=== PATIENT | female | born 1945 | race Caucasian/White ===

== ENCOUNTER 2017-01-26 15:46 | Emergency (ER) | payer OTHER, MEDICARE ==
[2017-01-26] MEDS ORDERED: LIDOCAINE PATCH 5% TOP STA (17:26)
[2017-01-26] MEDS ORDERED: ACETAMINOPHEN 325 MG TABLET PO STA (17:26)
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
[2017-01-26 18:13] VITALS: BP 158/76
== END 2017-01-26 18:13 | disposition home or self-care (01) ==
LOC: ED 15:46
DX: M54.5 Low back pain (principal); I10 Essential (primary) hypertension; J45.909 Unspecified asthma, uncomplicated; E11.9 Type 2 diabetes mellitus without complications; M19.90 Unspecified osteoarthritis, unspecified site; Z87.11 Personal history of peptic ulcer disease
CPT/HCPCS: 99283

== ENCOUNTER 2017-05-12 10:22 | Outpatient (CLI) | payer OTHER, MEDICARE ==
--- NOTE | 2017-05-14 14:05 | Mammography Report ---
EXAM: DIGITAL BILATERAL SCREENING MAMMOGRAM: 05/12/2017 CLINICAL INDICATION: A 71-year-old with history of benign biopsy, for screening. COMPARISON: 08/2015, 09/2007, 08/2007. TECHNIQUE: Routine CC and MLO projections were obtained of the breasts. REPORT: The breasts again demonstrated scattered fibroglandular densities bilaterally. Punctate, typically benign calcifications are present. Intramammary lymph nodes are stable. No suspicious masses, clustered microcalcifications, or regions of architectural distortion are identified. IMPRESSION: BENIGN FINDINGS. RECOMMENDATIONS: Routine annual screening unless otherwise clinically indicated. BIRADS 2 - Benign findings. STANDARD QUALIFYING STATEMENTS: 1. This examination was reviewed with the aid of Computer-Aided Detection (CAD). 2. A negative or benign imaging report should not delay biopsy if clinically suspicious findings are present. Consider surgical consultation if warranted. More than 5% of cancers are not identified by imaging. 3. Dense breasts may obscure an underlying neoplasm. SHASHI TD: 05/13/2017 16:44 RADHA
== END 2017-05-12 10:23 | disposition home or self-care (01) ==
LOC: DI 10:22
PROVIDERS: ATTEND Family Medicine
DX: Z12.31 Encounter for screening mammogram for malignant neoplasm of breast (principal)
CPT/HCPCS: 77067

== ENCOUNTER 2017-05-12 10:22 | Outpatient (CLI) | payer OTHER, MEDICARE ==
--- NOTE | 2017-05-16 13:29 | DEXA Report ---
EXAM: DEXA 05/12/2017. CLINICAL INDICATION: Postmenopausal. TECHNIQUE: Dual energy x-ray absorptiometry (DXA) was performed on a [employer] system. Regions measured are the AP spine, femoral neck, and, if needed, forearm. COMPARISON: None. In accordance with the International Society for Clinical Densitometry (ISCD) guidelines, data from previous exams may be reanalyzed using current recommendations and techniques. This is done to allow a more accurate basis for comparison with the current study. FINDINGS: The data for the lumbar spine is as follows: REGION BMD (g/cm/cm) T-SCORE Z-SCORE L1 1.161 0.3 0.8 L2 1.145 -0.5 0.1 L3 1.180 -0.2 0.4 L4 1.209 0.1 0.6 TOTAL 1.176 0.0 0.5 The data for the hip is as follows: REGION BMD (g/cm/cm) T-SCORE Z-SCORE Neck 0.857 -1.3 -0.2 TOTAL 0.964 -0.3 0.4 IMPRESSION WHO CLASSIFICATION BASED ON THE INTERNATIONAL REFERENCE STANDARD: OSTEOPENIA. FRACTURE RISK: INCREASED. RECOMMENDATION: Patients with diagnosis of osteoporosis or osteopenia should have regular bone mineral density assessment. For those eligible for Medicare, routine testing is allowed once every 2 years. Testing frequency can be increased for patients who have rapidly progressing disease or for those who are receiving medical therapy to restore bone mass. COMMENT: World Health Organization (WHO) definitions for osteoporosis and osteopenia: NORMAL BMD: T-score at 1.0 or higher, fracture risk is low. OSTEOPENIA BMD: T-score between 1.0 and -2.5, fracture risk is increased. OSTEOPOROSIS BMD: T-score at 2.5 or lower, fracture risk high. National Osteoporosis Foundation recommends: 1. Obtain adequate dietary calcium (at least 1200 mg per day) and vitamin D (400 -800 international units per day). 2. Participate, as appropriate, in regular weightbearing and muscle- strengthening exercise. 3. Avoid tobacco use and reduce alcohol and caffeine intake. 4. For more detailed information see the website at www.NOF.org TD: 05/12/2017 19:42 MTDClaritza
== END 2017-05-12 10:23 | disposition home or self-care (01) ==
LOC: DI 10:22
PROVIDERS: ATTEND Family Medicine
DX: M85.88 Other specified disorders of bone density and structure, other site (principal)
CPT/HCPCS: 77080

== ENCOUNTER 2017-05-19 12:17 | Day surgery (SDC) | payer OTHER, MEDICARE ==
[2017-05-19] MEDS ORDERED: LACTATED RINGERS 1,000 ML IV ONE ×2 (14:29)
[2017-05-19] MEDS ORDERED: MIDAZOLAM 2 MG/2 ML VIAL IVP ONE (15:00)
[2017-05-19] MEDS ORDERED: fentaNYL 100 MCG/2 ML VIAL IVP ONE (15:00)
[2017-05-19 15:26] VITALS: BP 135/74
== END 2017-05-19 12:18 | disposition home or self-care (01) ==
LOC: SDS 12:17
PROVIDERS: ATTEND Surgery
PROC: 0DBH8ZX Excision of Cecum, Via Natural or Artificial Opening Endoscopic, Diagnostic (ICD-10-PCS; principal; 2017-05-19 13:30)
DX: Z12.11 Encounter for screening for malignant neoplasm of colon (principal); D12.0 Benign neoplasm of cecum; K57.30 Diverticulosis of large intestine without perforation or abscess without bleeding; K64.8 Other hemorrhoids; I10 Essential (primary) hypertension; E78.5 Hyperlipidemia, unspecified; J45.909 Unspecified asthma, uncomplicated; F32.9 Major depressive disorder, single episode, unspecified; F41.9 Anxiety disorder, unspecified
CPT/HCPCS: 45380; J7120

== ENCOUNTER 2017-08-27 16:19 | Emergency (ER) | payer OTHER, MEDICARE ==
[2017-08-27 16:28] VITALS: BP 178/84
[2017-08-27] MEDS ORDERED: IPRATROPIUM/ALBUTEROL 3 ML NEB INH STA (16:51)
[2017-08-27] MEDS ORDERED: AZITHROMYCIN 250 MG TABLET PO STA (16:51)
[2017-08-27] MEDS ORDERED: predniSONE 20 MG TABLET PO STA (16:51)
[2017-08-27] MEDS ORDERED: FLUCONAZOLE 100 MG TABLET PO STA (16:52)
--- NOTE | 2017-08-27 16:55 | ED Physician Documentation ---
PD HPI URI - Stated complaint Stated Complaint: SOA - Chief complaint Chief Complaint: Resp - History obtained from History obtained from: Patient - History of Present Illness Timing - onset: How many weeks ago (2+) Timing duration: Weeks (2+) Timing details: Gradual onset, Still present, Waxing and waning Associated symptoms: Nasal congestion, Rhinorrhea, Dry cough, Dyspnea. No: Fever, Chills Improves by: Rest, MDI/nebulizer Worsened by: Activity, Other (coughing) Similar symptoms before: Diagnosis (bronchitis with asthma) Recently seen: Not recently seen - Additional information Additional information: 72-year-old female has had a cough for the past month for the past 2 weeks it is been particularly worse. She has had cough on and off and felt this was going to get better. She has developed increasing shortness of breath and now has some pain on her tongue as well after using her nebulizer twice per day. She does have cough and exertional dyspnea as well as a history of asthma. Review of Systems Constitutional: denies: Fever Eyes: denies: Decreased vision Ears: denies: Ear pain Nose: reports: Rhinorrhea / runny nose, Congestion Throat: denies: Sore throat Cardiac: denies: Chest pain / pressure, Palpitations Respiratory: reports: Dyspnea, Cough GI: denies: Abdominal Pain, Nausea, Vomiting : denies: Dysuria, Frequency Skin: denies: Rash Musculoskeletal: denies: Neck pain, Back pain, Extremity pain Neurologic: denies: Generalized weakness, Focal weakness, Numbness PD PAST MEDICAL HISTORY - Past Medical History Past Medical History: Yes Cardiovascular: Hypertension, High cholesterol Respiratory: Asthma, Pneumonia Neuro: None Endocrine/Autoimmune: None GI: None : Incontinence HEENT: None Psych: None Musculoskeletal: None Derm: None - Past Surgical History Past Surgical History: Yes 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 HEENT: Cataracts - Present Medications Home Medications: Ambulatory Orders Medication Instructions Recorded Confirmed Lisinopril 10 mg PO DAILY 10/31/12 05/19/17 Albuterol Sulfate 2.5 mg IH Q6H PRN #1 bot 02/14/16 05/19/17 Atorvastatin [Lipitor] 1 tab PO DAILY 02/14/16 05/19/17 Azithromycin [Zithromax] 250 mg PO DAILY #4 tablet 08/27/17 Clotrimazole Carlos 10 mg MM 5XD #30 lozenge 08/27/17 predniSONE [Deltasone] 10 mg PO DAILY #26 tablet 08/27/17 - Allergies Allergies/Adverse Reactions: Allergies Allergy/AdvReac Type Severity Reaction Status Date / Time cephalexin monohydrate * Allergy Severe Respiratory Verified 08/27/17 16:28 [From Keflex] Penicillins Allergy Severe Hives Verified 08/27/17 16:28 - Social History Does the pt smoke?: No Smoking Status: Never smoker Does the pt drink ETOH?: Yes Does the pt have substance abuse?: No - Immunizations Immunizations are current?: No Immunizations: TDAP >10years/unknown - POLST Patient has POLST: No PD ED PE NORMAL - Vitals Vital signs reviewed: Yes (hypertensive) - General General: Alert and oriented X 3, No acute distress, Well developed/nourished - HEENT HEENT: Atraumatic, PERRL, EOMI, Other (both TM's are inflamed and the left is worse than the right. mucous membranes are dry. ) - Neck Neck: Supple, no meningeal sign, No bony TTP - Cardiac Cardiac: RRR, No murmur - Respiratory Respiratory: No respiratory distress, Clear bilaterally - Abdomen Abdomen: Soft, Non tender - Back Back: No CVA TTP, No spinal TTP - Derm Derm: Normal color, Warm and dry, No rash - Extremities Extremities: No deformity, No edema - Neuro Neuro: Alert and oriented X 3, No motor deficit, No sensory deficit, Normal speech Eye Opening: Spontaneous Motor: Obeys Commands Verbal: Oriented GCS Score: 15 - Psych Psych: Normal mood, Normal affect Results - Vitals Vitals: Vital Signs - 24 hr 08/27/17 16:24 Temperature 36.9 C Heart Rate 90 Respiratory 18 Rate Blood Pressure 178/84 H O2 Saturation 96 Oxygen O2 Source Room air - EKG (time done) 1629 Rate: Rate (enter#) (78) Rhythm: NSR Anderson: LAD Ischemia: Normal ST segments Compare to prior EKG: Unchanged from prior EKG (02-26-14) Computer interpretation: Agree with computer - Rads (name of study) 2 veiw chest Radiology: Prelim report reviewed (Impression: No acute intrathoracic plain film abnormality.), EMP read indepedently, See rad report PD MEDICAL DECISION MAKING - ED course Complexity details: reviewed old records, reviewed results, re-evaluated patient , considered differential, d/w patient ED course: 72-year-old female with a history of asthma has developed a cough and congestion and worsening of her asthma. She has been using her inhaler enough that she has developed thrush. She has a denuded tongue and is having some pain with this. The patient has had improvement previously with the use of prednisone and she does not usually get spikes in her blood sugar with prednisone. She does have otitis on exam and I suspect that her waxing and waning symptoms are related to this improving and on the back and a course of antibiotic is indicated. She is administered prednisone 60 mg orally and azithromycin 500 mg orally as well as Diflucan. Departure - Departure Disposition: 01 Home, Self Care Clinical Impression: Otitis media Qualifiers: Otitis media type: suppurative Chronicity: acute Laterality: bilateral Recurrence: not specified as recurrent Spontaneous tympanic membrane rupture: without spontaneous rupture Qualified Code(s): H66.003 - Acute suppurative otitis media without spontaneous rupture of ear drum, bilateral Reactive airway disease Qualifiers: Asthma severity: mild Asthma persistence: intermittent Asthma complication type : with acute exacerbation Qualified Code(s): J45.21 - Mild intermittent asthma with (acute) exacerbation Condition: Stable Instructions: ED Otitis Media Acute Adult, ED Bronchitis Asthmatic Follow-Up: Nilson Flor MD [Primary Care Provider] - Prescriptions: Azithromycin [Zithromax] 250 mg PO DAILY #4 tablet Clotrimazole Carlos 10 mg MM 5XD #30 lozenge predniSONE [Deltasone] 10 mg PO DAILY #26 tablet
--- NOTE | 2017-08-27 16:57 | XRAY Report ---
EXAM: CHEST RADIOGRAPHY EXAM DATE: 08/27/2017 04:46 PM. CLINICAL HISTORY: Dyspnea. COMPARISON: None. TECHNIQUE: 2 views. FINDINGS: Lungs/Pleura: No focal opacities evident. No pleural effusion. No pneumothorax. Normal volumes. Mediastinum: Heart and mediastinal contours are unremarkable. Other: There are remote left lateral rib fractures. IMPRESSION: No acute intrathoracic plain film abnormality. [facility] Referring Provider Line: [phone] SITE ID: [id number]
[2017-08-27] MEDS ORDERED: FLUCONAZOLE 100 MG TABLET ONE (17:09)
== END 2017-08-27 17:40 | disposition home or self-care (01) ==
LOC: ED 16:19
DX: H66.003 Acute suppurative otitis media without spontaneous rupture of ear drum, bilateral (principal); J45.21 Mild intermittent asthma with (acute) exacerbation; I10 Essential (primary) hypertension; E78.00 Pure hypercholesterolemia, unspecified
CPT/HCPCS: 71046; 93005; 94640; 99283; 99284; A9270; J7512

== ENCOUNTER 2017-09-18 19:04 | Emergency (ER) | payer OTHER, MEDICARE ==
--- NOTE | 2017-09-18 19:51 | XRAY Preliminary Report ---
Exam: XR CHEST 2 VIEW X-RAY IMPRESSION: Remote left-sided rib fractures, otherwise unremarkable exam without change. [facility] SITE ID: [id number]
[2017-09-18 19:52] VITALS: BP 128/70
--- NOTE | 2017-09-18 19:52 | XRAY Report ---
EXAM: CHEST RADIOGRAPHY EXAM DATE: 09/18/2017 07:32 PM. CLINICAL HISTORY: Cough, wheezing. COMPARISON: 08/27/2017. TECHNIQUE: 2 views. FINDINGS: Lungs/Pleura: No focal opacities evident. No pleural effusion. No pneumothorax. Normal volumes. Mediastinum: Heart and mediastinal contours are unremarkable. Other: Remote left-sided rib fractures. IMPRESSION: Remote left-sided rib fractures, otherwise unremarkable exam without change. [facility] Referring Provider Line: [phone] SITE ID: [id number]
[2017-09-18] MEDS ORDERED: CETIRIZINE 10 MG TABLET PO STA (20:01)
[2017-09-18] MEDS ORDERED: ALBUTEROL NEB 2.5 MG/3 ML INH STA (20:01)
[2017-09-18] MEDS ORDERED: predniSONE 20 MG TABLET PO STA (20:01)
--- NOTE | 2017-09-18 20:02 | ED Physician Documentation ---
History of Present Illness - Stated complaint Stated Complaint: SOA - Chief complaint Chief Complaint: Resp - History obtained from History obtained from: Patient - History of Present Illness Timing: How many days ago (5) Pain level max: 0 Pain level now: 0 Improved by: albuterol Worsened by: exertion - Additonal information Additional information: Patient is a 72-year-old female who presents to the emergency department with wheezing and dyspnea over the past 5 days. She states that this is typical when pollen begins to be present in the air and exacerbates her asthma. Has not had any fevers. There is only using her nebulizer once a day, in the morning when she first awakens. Did take Benadryl to help her sleep last night. Has used her inhaler intermittently throughout the day, but does not use it with a spacer. Review of Systems Constitutional: denies: Fever Nose: reports: Rhinorrhea / runny nose, Congestion Cardiac: denies: Chest pain / pressure Respiratory: reports: Dyspnea, Cough, Wheezing GI: denies: Abdominal Pain, Nausea, Vomiting, Diarrhea Skin: denies: Rash Musculoskeletal: denies: Neck pain, Back pain Neurologic: denies: Headache PD PAST MEDICAL HISTORY - Past Medical History Cardiovascular: Hypertension, High cholesterol Respiratory: Asthma, Pneumonia Neuro: None Endocrine/Autoimmune: None GI: None : Incontinence HEENT: None Psych: None Musculoskeletal: None Derm: None - Past Surgical History Past Surgical History: Yes 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 HEENT: Cataracts - Present Medications Home Medications: Ambulatory Orders Medication Instructions Recorded Confirmed Lisinopril 10 mg PO DAILY 10/31/12 05/19/17 Albuterol Sulfate 2.5 mg IH Q6H PRN #1 bot 02/14/16 05/19/17 Atorvastatin [Lipitor] 1 tab PO DAILY 02/14/16 05/19/17 Azithromycin [Zithromax] 250 mg PO DAILY #4 tablet 08/27/17 Clotrimazole Carlos 10 mg MM 5XD #30 lozenge 08/27/17 predniSONE [Deltasone] 10 mg PO DAILY #26 tablet 08/27/17 Benzonatate [Tessalon Perle] 100 - 200 mg PO TID PRN #30 capsule 09/18/17 predniSONE [Prednisone] 40 mg PO DAILY #10 tablet 09/18/17 - Allergies Allergies/Adverse Reactions: Allergies Allergy/AdvReac Type Severity Reaction Status Date / Time cephalexin monohydrate * Allergy Severe Respiratory Verified 08/27/17 16:28 [From Keflex] Penicillins Allergy Severe Hives Verified 08/27/17 16:28 - Social History Does the pt smoke?: No Smoking Status: Never smoker Does the pt drink ETOH?: Yes Does the pt have substance abuse?: No - Immunizations Immunizations are current?: No Immunizations: TDAP >10years/unknown - POLST Patient has POLST: No PD ED PE NORMAL - Vitals Vital signs reviewed: Yes - General General: Alert and oriented X 3, No acute distress - HEENT HEENT: Moist mucous membranes - Neck Neck: Supple, no meningeal sign - Cardiac Cardiac: RRR, Strong equal pulses - Respiratory Respiratory: No respiratory distress, Other (Mild wheezing bilaterally) - Abdomen Abdomen: Soft, Non tender, Non distended - Derm Derm: Warm and dry, No rash - Extremities Extremities: No calf tenderness / cord - Neuro Neuro: Alert and oriented X 3 - Psych Psych: Normal mood, Normal affect Results - Vitals Vitals: Vital Signs - 24 hr 09/18/17 09/18/17 09/18/17 19:11 19:51 20:12 Temperature 36.4 C L Heart Rate 90 85 82 Respiratory 24 16 17 Rate Blood Pressure 152/105 H 128/70 O2 Saturation 98 95 Oxygen O2 Source Room air - Rads (name of study) cxr Radiology: Prelim report reviewed, EMP read contemporaneously, See rad report ( Remote left-sided rib fractures, otherwise unremarkable exam without change) PD MEDICAL DECISION MAKING - ED course Complexity details: reviewed results, re-evaluated patient, considered differential, d/w patient ED course: Patient is a 72-year-old female who presents to the emergency department with what appears to be seasonal allergies causing an exacerbation of her asthma. Will place on steroids for home. No acute findings on x-ray. She is well- appearing, nontoxic. Afebrile. No hypoxia. No respiratory distress. Patient counseled regarding signs and symptoms for which I believe and urgent re- evaluation would be necessary. Patient with good understanding of and agreement to plan and is comfortable going home at this time This document was made in part using voice recognition software. While efforts are made to proofread this document, sound alike and grammatical errors may occur. Departure - Departure Disposition: 01 Home, Self Care Clinical Impression: Asthma exacerbation Qualifiers: Asthma severity: unspecified severity Asthma persistence: intermittent Qualified Code(s): J45.21 - Mild intermittent asthma with (acute) exacerbation Seasonal allergies Qualifiers: Allergic rhinitis trigger: unspecified Qualified Code(s): J30.2 - Other seasonal allergic rhinitis Condition: Good Instructions: ED Reactive Airway Disease Follow-Up: Nilson Flor MD [Primary Care Provider] - Within 1 week Prescriptions: Benzonatate [Tessalon Perle] 100 - 200 mg PO TID PRN #30 capsule PRN Reason: Cough predniSONE [Prednisone] 40 mg PO DAILY #10 tablet Comments: Your xray is normal today. Return if you worsen. This should improve with the steroids and zyrtec Forms: Activity restrictions Discharge Date/Time: 09/18/17 20:34
== END 2017-09-18 20:34 | disposition home or self-care (01) ==
LOC: ED 19:04
DX: J45.21 Mild intermittent asthma with (acute) exacerbation (principal); J30.2 Other seasonal allergic rhinitis; I10 Essential (primary) hypertension
CPT/HCPCS: 71046; 93005; 94640; 99283; 99284; A9270; J7512

== ENCOUNTER 2017-09-25 21:09 | Outpatient (CLI) | payer OTHER, MEDICARE | END 2017-09-25 21:10 | disposition critical access hospital (66) | LOC: EMS 21:09 | PROVIDERS: ATTEND Surgery | DX: R10.9 Unspecified abdominal pain (principal); R11.0 Nausea; R19.7 Diarrhea, unspecified | CPT/HCPCS: A0425; A0429 ==

== ENCOUNTER 2017-09-25 21:25 | Emergency (ER) | payer OTHER, MEDICARE ==
--- NOTE | 2017-09-25 21:47 | ED Physician Documentation ---
PD HPI ABD PAIN - Stated complaint Stated Complaint: ABD PAIN - Chief complaint Chief Complaint: Abd Pain - History obtained from History obtained from: Patient - History of Present Illness Timing - onset: Enter time (19:30) Timing - details: Abrupt onset Pain level max: 9 Pain level now: 5 Quality: Pain Location: RLQ, Suprapubic, LLQ Radiation: Other (no radiation) Improved by: BM Worsened by: Other (no exacerbating factors) Associated symptoms: Nausea, Near syncope / syncope. No: Fever, Vomiting Similar symptoms before: Has not had sx before Recently seen: Emergency Dept (T+R earlier this month for dyspnea) - Additional information Additional information: 7:30 PM tonight, had urge to defecate but was unable to. She then suddenly developed severe pain across lower abdomen, followed by nausea, diaphoresis, and generalized weakness. "I thought I was going to faint" (per patient), so she called 911. Before ambulance arrived, she had large BM that was initially hard, followed by several episodes of loose stool; she experienced some relief of her pain with BM. Continues to have waxing and waning abdominal pain, though less intense Review of Systems Constitutional: reports: Sweats. denies: Fever, Chills Cardiac: reports: Reviewed and negative Respiratory: reports: Reviewed and negative GI: reports: Abdominal Pain, Nausea. denies: Vomiting : denies: Dysuria, Frequency Musculoskeletal: reports: Reviewed and negative Neurologic: reports: Generalized weakness. 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 HEENT: Cataracts - Present Medications Home Medications: Ambulatory Orders Medication Instructions Recorded Confirmed Lisinopril 10 mg PO DAILY 10/31/12 05/19/17 Albuterol Sulfate 2.5 mg IH Q6H PRN #1 bot 02/14/16 05/19/17 Atorvastatin [Lipitor] 1 tab PO DAILY 02/14/16 05/19/17 Azithromycin [Zithromax] 250 mg PO DAILY #4 tablet 08/27/17 Clotrimazole Carlos 10 mg MM 5XD #30 lozenge 08/27/17 predniSONE [Deltasone] 10 mg PO DAILY #26 tablet 08/27/17 Benzonatate [Tessalon Perle] 100 - 200 mg PO TID PRN #30 capsule 09/18/17 predniSONE [Prednisone] 40 mg PO DAILY #10 tablet 09/18/17 Hydrocodone/Acetaminophen 1 - 2 each PO Q6HR PRN #10 tablet 09/26/17 [Hydrocodon-Acetaminophen 5-325] - Allergies Allergies/Adverse Reactions: Allergies Allergy/AdvReac Type Severity Reaction Status Date / Time cephalexin monohydrate * Allergy Severe Respiratory Verified 08/27/17 16:28 [From Keflex] Penicillins Allergy Severe Hives Verified 08/27/17 16:28 - Social History Does the pt smoke?: No Smoking Status: Never smoker Does the pt drink ETOH?: Yes Does the pt have substance abuse?: No - Immunizations Immunizations are current?: No Immunizations: TDAP >10years/unknown - POLST Patient has POLST: No PD ED PE NORMAL - Vitals Vital signs reviewed: Yes - General General: Alert and oriented X 3, No acute distress, Well developed/nourished - HEENT HEENT: Other (pasty/tacky mucous membranes) - Neck Neck: Supple, no meningeal sign - Cardiac Cardiac: RRR, No murmur - Respiratory Respiratory: No respiratory distress, Clear bilaterally - Abdomen Abdomen: Soft, Non distended, Other (mild RUQ TTP without rebound or guarding) - Back Back: No CVA TTP - Derm Derm: Normal color, Warm and dry - Extremities Extremities: No edema Results - Vitals Vitals: Vital Signs - 24 hr 09/25/17 09/26/17 09/26/17 21:27 00:09 03:46 Temperature 97.6 C H 36.4 C L 37.0 C Heart Rate 72 78 80 Respiratory 16 16 16 Rate Blood Pressure 159/71 H 156/74 H 122/61 O2 Saturation 100 100 94 Oxygen O2 Source Room air - Labs Labs: Laboratory Tests 09/25/17 09/25/17 22:15 22:15 WBC 14.3 H RBC 4.88 Hgb 13.6 Hct 42.4 MCV 87.0 MCH 27.9 MCHC 32.0 RDW 14.8 Plt Count 364 MPV 6.3 L Neut # 10.9 H Lymph # 2.0 Crenshaw # 1.0 Eos # 0.4 Baso # 0.1 Absolute Nucleated RBC 0.00 Nucleated RBC % 0.0 Sodium 136 Potassium 3.6 Chloride 99 L Carbon Dioxide 29 Anion Gap 8.0 BUN 18 Creatinine 0.8 Estimated GFR (MDRD) 70 L Glucose 190 H Calcium 9.0 Total Bilirubin 0.5 AST 19 ALT 19 Alkaline Phosphatase 72 Total Protein 6.8 Albumin 3.9 Globulin 2.9 Albumin/Globulin Ratio 1.3 Lipase 17 L - Rads (name of study) CT A/P Radiology: Prelim report reviewed, See rad report PD MEDICAL DECISION MAKING - ED course Complexity details: reviewed results, re-evaluated patient, considered differential, d/w patient Departure - Departure Disposition: 01 Home, Self Care Clinical Impression: Colitis Condition: Good Instructions: ED Gastroenteritis Non Infec Follow-Up: [facility] [Provider Group] [facility] [Provider Group] Prescriptions: Hydrocodone/Acetaminophen [Hydrocodon-Acetaminophen 5-325] 1 - 2 each PO Q6HR PRN #10 tablet PRN Reason: Pain Forms: Activity restrictions Discharge Date/Time: 09/26/17 04:13
[2017-09-25] MEDS ORDERED: MORPHINE 2 MG/ML SYRINGE IVP STA (22:08)
[2017-09-25] MEDS ORDERED: SODIUM CHLORIDE 0.9% 1,000 ML IV STA (22:08)
[2017-09-25 22:24] LABS: BASOPHILS # (AUTO) 0.1 10^3/uL (0.0-0.1); BASOPHILS % (AUTO) 0.4 %; EOSINOPHILS # (AUTO) 0.4 10^3/uL (0.0-0.7); EOSINOPHILS % (AUTO) 2.5 %; HGB - HEMOGLOBIN 13.6 g/dL (12.0-16.0); MEAN CORPUSCULAR HEMOGLOBIN 27.9 pg (27.0-31.0); MEAN PLATELET VOLUME 6.3 fL (7.9-10.8); MONOCYTES % (AUTO) 6.9 %; NEUTROPHILS # (AUTO) 10.9 10^3/uL (1.5-6.6); NEUTROPHILS % (AUTO) 76.2 %; PLT - PLATELET COUNT 364 10^3/uL (130-450); RED BLOOD COUNT 4.88 10^6/uL (4.20-5.40); RED CELL DISTRIBUTION WIDTH 14.8 % (12.0-15.0); WHITE BLOOD COUNT 14.3 x10^3/uL (4.8-10.8)
[2017-09-25] MEDS ORDERED: IOPAMIDOL-300 100 ML VIAL ONE (22:32)
[2017-09-25] MEDS ORDERED: IOPAMIDOL-300 50 ML VIAL ONE (22:32)
[2017-09-25 22:36] LABS: ALBUMIN 3.9 g/dL (3.2-5.5); ALBUMIN/GLOBULIN RATIO 1.3 (1.0-2.2); BILIRUBIN,TOTAL 0.5 mg/dL (0.2-1.0); CREATININE 0.8 mg/dL (0.4-1.0); TOTAL PROTEIN 6.8 g/dL (6.7-8.2)
[2017-09-25] MEDS ORDERED: IOPAMIDOL-300 50 ML VIAL PO ONE (23:26)
[2017-09-25] MEDS ORDERED: ONDANSETRON 4 MG/2 ML VIAL IVP STA (23:44)
[2017-09-25] MEDS ORDERED: IOPAMIDOL-300 100 ML VIAL IVP ONE (23:56)
--- NOTE | 2017-09-26 00:50 | CT Preliminary Report ---
Exam: CT ABDOMEN/PELVIS W/ IMPRESSION: 1. Proximal sigmoid and left colon wall thickening with minimal adjacent stranding. Imaging findings are concerning for mild colitis. 2. No complications such as obstruction, perforation or abscess. 3. Gallbladder surgically absent. 4. Small periumbilical hernia. No obstruction. [facility] SITE ID: [id number]
[2017-09-26] MEDS ORDERED: SODIUM CHLORIDE 0.9% 1,000 ML IV STA (01:15)
--- NOTE | 2017-09-26 01:43 | CT Report ---
EXAM: CT ABDOMEN AND PELVIS EXAM DATE: 09/26/2017 12:08 AM. CLINICAL HISTORY: Abdominal pain. COMPARISONS: 02/26/2014. TECHNIQUE: Routine helical CT imaging was performed through the abdomen and pelvis. IV contrast: 100 mL Isovue 300. Enteric contrast: Yes. Reconstructions: Coronal and sagittal. In accordance with CT protocol optimization, one or more of the following dose reduction techniques w ere utilized for this exam: automated exposure control, adjustment of mA and/or KV based on patient s ize, or use of iterative reconstructive technique. FINDINGS: Lung Bases: Dependent atelectasis. Mild cardiac enlargement. Small incidental hiatal hernia is noted. Liver: Fatty liver. Otherwise unremarkable. Gallbladder/Bile Ducts: Gallbladder surgically absent. Mild dilation of the common bile duct. No comm on bile duct stone or mass. Spleen: Normal. Pancreas: Normal. Adrenal Glands: Normal. Kidneys: Nonobstructing inferior left renal stone. Simple right-sided renal cyst. No renal mass or hy dronephrosis is seen. Peritoneal Cavity/Bowel: Diffuse colonic diverticulosis is present. Mild pericolonic inflammation blanca rounds the mid and distal left colon and proximal sigmoid colon. There is associated mild wall thicke leonel. No dilated bowel. No pneumatosis, portal venous gas or pneumoperitoneum. No ascites or fluid co llection. Remaining small bowel and stomach are normal. Small incidental duodenal diverticulum. The a ppendix is well-visualized and normal. No pathologic adenopathy. Pelvic Organs: Normal. The bladder and visualized pelvic organs are within normal limits. Vasculature: Diffuse atheromatous plaques are present in the abdominal aorta and branch vessels. No a neurysm. Normal IVC. Bones: No significant abnormality. Other: There is a small paraumbilical hernia containing a part of the wall of a single loop of small bowel. No concomitant obstruction. IMPRESSION: 1. Proximal sigmoid and left colon wall thickening with minimal adjacent stranding. Imaging findings are concerning for mild colitis. 2. No complications such as obstruction, perforation or abscess. 3. Gallbladder surgically absent. 4. Small paraumbilical hernia. No obstruction. [facility] Referring Provider Line: [phone] SITE ID: [id number]
[2017-09-26 03:52] VITALS: BP 122/61
[2017-09-26] MEDS ORDERED: HYDROcod/ACET 5/325 Prepack 4 PO STA (04:01)
== END 2017-09-26 04:13 | disposition home or self-care (01) ==
LOC: EDUNIT# → ED 21:25
DX: K52.9 Noninfective gastroenteritis and colitis, unspecified (principal); I10 Essential (primary) hypertension; E78.00 Pure hypercholesterolemia, unspecified
CPT/HCPCS: 36415; 74177; 80053; 83690; 85025; 96361; 96374; 96375; 99283; 99284; J2270; Q9967

== ENCOUNTER 2017-09-28 14:09 | Outpatient (CLI) | payer OTHER, MEDICARE ==
[2017-09-28 19:36] LABS: BASOPHILS % (AUTO) 0.4 %; EOSINOPHILS # (AUTO) 0.2 10^3/uL (0.0-0.7); EOSINOPHILS % (AUTO) 2.8 %; HGB - HEMOGLOBIN 12.8 g/dL (12.0-16.0); LYMPHOCYTES # (AUTO) 2.1 10^3/uL (1.5-3.5); LYMPHOCYTES % (AUTO) 23.8 %; MEAN CORPUSCULAR HEMOGLOBIN 28.1 pg (27.0-31.0); MEAN CORPUSCULAR HGB CONC 32.1 g/dL (32.0-36.0); MEAN CORPUSCULAR VOLUME 87.7 fL (81.0-99.0); MEAN PLATELET VOLUME 7.1 fL (7.9-10.8); MONOCYTES # (AUTO) 0.7 10^3/uL (0.0-1.0); NEUTROPHILS # (AUTO) 5.6 10^3/uL (1.5-6.6); PLT - PLATELET COUNT 330 10^3/uL (130-450); RED BLOOD COUNT 4.54 10^6/uL (4.20-5.40); RED CELL DISTRIBUTION WIDTH 15.1 % (12.0-15.0); WHITE BLOOD COUNT 8.7 x10^3/uL (4.8-10.8)
[2017-09-28 19:57] LABS: ALBUMIN 3.4 g/dL (3.2-5.5); ALBUMIN/GLOBULIN RATIO 1.1 (1.0-2.2); BILIRUBIN,TOTAL 0.4 mg/dL (0.2-1.0); CALCIUM 8.7 mg/dL (8.5-10.3); CREATININE 0.6 mg/dL (0.4-1.0); TOTAL PROTEIN 6.4 g/dL (6.7-8.2)
== END 2017-09-28 14:10 | disposition home or self-care (01) ==
LOC: LAB.WCP 14:09
PROVIDERS: ATTEND Family Medicine
DX: M54.5 Low back pain (principal); E11.9 Type 2 diabetes mellitus without complications; J45.909 Unspecified asthma, uncomplicated; K52.9 Noninfective gastroenteritis and colitis, unspecified
CPT/HCPCS: 36415; 80053; 85025

== ENCOUNTER 2017-10-16 15:30 | Emergency (ER) | payer OTHER, MEDICARE ==
--- NOTE | 2017-10-16 16:08 | ED Physician Documentation ---
PD HPI DYSPNEA - Stated complaint Stated Complaint: Cough - Chief complaint Chief Complaint: Resp - History obtained from History obtained from: Patient - History of Present Illness Timing - onset: Other (72yo woman with asthma has been having a tough few months with asthma, cough and allergies. She has been here a few times over the months and seems to improve with abx and prednisone. Increased cough now with mild production, does get relief with her albuterol nebs at home.) Review of Systems Constitutional: denies: Fever, Chills Nose: denies: Rhinorrhea / runny nose, Congestion Cardiac: denies: Chest pain / pressure, Palpitations Respiratory: reports: Dyspnea, Cough GI: denies: Abdominal Pain, Nausea, Vomiting PD PAST MEDICAL HISTORY - Past Medical History Cardiovascular: Hypertension, High cholesterol Respiratory: Asthma, Pneumonia Endocrine/Autoimmune: None GI: None : Incontinence HEENT: None Psych: None Musculoskeletal: None Derm: None - Past Surgical History Past Surgical History: Yes 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 HEENT: Cataracts - Present Medications Home Medications: Ambulatory Orders Medication Instructions Recorded Confirmed Lisinopril 10 mg PO DAILY 10/31/12 05/19/17 Albuterol Sulfate 2.5 mg IH Q6H PRN #1 bot 02/14/16 05/19/17 Atorvastatin [Lipitor] 1 tab PO DAILY 02/14/16 05/19/17 Doxycycline Hyclate 100 mg PO BID #14 tablet 10/16/17 Montelukast Sodium 10 mg PO DAILY #30 tablet 10/16/17 amLODIPine [Norvasc] 10 10/16/17 guaiFENesin/CODEINE [Robitussin AC] 5 - 10 ml PO Q6H PRN #120 ml 10/16/17 predniSONE [Deltasone] 60 mg PO DAILY 5 Days tablet 10/16/17 - Allergies Allergies/Adverse Reactions: Allergies Allergy/AdvReac Type Severity Reaction Status Date / Time cephalexin monohydrate * Allergy Severe Respiratory Verified 08/27/17 16:28 [From Keflex] Penicillins Allergy Severe Hives Verified 08/27/17 16:28 - Social History Does the pt smoke?: No Smoking Status: Never smoker Does the pt drink ETOH?: Yes Does the pt have substance abuse?: No - Immunizations Immunizations are current?: No Immunizations: TDAP >10years/unknown - POLST Patient has POLST: No PD ED PE NORMAL - Vitals Vital signs reviewed: Yes - General General: Alert and oriented X 3, No acute distress - HEENT HEENT: PERRL, EOMI - Cardiac Cardiac: RRR, No murmur - Respiratory Respiratory: No respiratory distress, Other (Mildly diminished without focal findings) - Extremities Extremities: No edema, No calf tenderness / cord - Neuro Neuro: Alert and oriented X 3, Normal speech - Psych Psych: Normal mood, Normal affect Results - Vitals Vitals: Vital Signs - 24 hr 10/16/17 15:34 Temperature 37.4 C Heart Rate 83 Respiratory 20 Rate Blood Pressure 165/75 H O2 Saturation 99 Oxygen O2 Source Room air PD MEDICAL DECISION MAKING - ED course ED course: This is a 72-year-old woman with asthma and has been having a bad spring with allergic and infectious related bronchitis and asthma exacerbations. She seems to improve at times with antibiotics and prednisone. She is taking a inhaled steroid but she does not know which one. She was advised to continue this. Think it would also be reasonable to trial some Singulair/montelukast asked to see if that helps her avoid further courses of oral steroids. Departure - Departure Disposition: Home, Self Care Clinical Impression: Bronchitis, Hypertension, essential Asthma exacerbation Qualifiers: Asthma severity: moderate Asthma persistence: persistent Qualified Code(s): J45.41 - Moderate persistent asthma with (acute) exacerbation Condition: Good Record reviewed to determine appropriate education?: Yes Instructions: Asthma Dc Prescriptions: Doxycycline Hyclate 100 mg PO BID #14 tablet guaiFENesin/CODEINE [Robitussin AC] 5 - 10 ml PO Q6H PRN #120 ml PRN Reason: Cough Montelukast Sodium 10 mg PO DAILY #30 tablet predniSONE [Deltasone] 60 mg PO DAILY 5 Days tablet Comments: Follow-up with Dr. Flor, let him know whether the Singulair is working for your symptoms. Return if worsening.
[2017-10-16] MEDS ORDERED: MONTELUKAST 10 MG TABLET PO STA (16:21)
[2017-10-16] MEDS ORDERED: DOXYCYCLINE 100 MG TABLET PO STA (16:21)
[2017-10-16] MEDS ORDERED: predniSONE 20 MG TABLET PO STA (16:21)
[2017-10-16] MEDS ORDERED: guaiFENesin/CODEINE 5 ML UDC PO STA (16:21)
[2017-10-16 16:37] VITALS: BP 154/73
== END 2017-10-16 16:39 | disposition home or self-care (01) ==
LOC: ED 15:30
DX: J40 Bronchitis, not specified as acute or chronic (principal); I10 Essential (primary) hypertension; J45.41 Moderate persistent asthma with (acute) exacerbation; E78.00 Pure hypercholesterolemia, unspecified
CPT/HCPCS: 99283; A9270; J7512

== ENCOUNTER 2017-11-06 13:04 | Outpatient (CLI) | payer OTHER, MEDICARE ==
[2017-11-06] MEDS ORDERED: ALBUTEROL NEB 2.5 MG/3 ML INH SCH (15:00)
== END 2017-11-06 13:05 | disposition home or self-care (01) ==
LOC: RT 13:04
PROVIDERS: ATTEND Family Medicine
DX: J45.909 Unspecified asthma, uncomplicated (principal)
CPT/HCPCS: 94060

== ENCOUNTER 2017-12-02 10:20 | Outpatient (CLI) | payer OTHER, MEDICARE ==
[2017-12-02] MEDS ORDERED: IOPAMIDOL-300 50 ML VIAL ONE (10:41)
[2017-12-02] MEDS ORDERED: IOPAMIDOL-300 100 ML VIAL ONE (10:41)
[2017-12-02 11:06] LABS: CREATININE 0.6 mg/dL (0.4-1.0)
[2017-12-02] MEDS ORDERED: IOPAMIDOL-300 50 ML VIAL PO ONE (11:52)
[2017-12-02] MEDS ORDERED: IOPAMIDOL-300 100 ML VIAL IVP ONE (11:52)
--- NOTE | 2017-12-02 12:31 | CT Report ---
Procedure Date: 12/02/2017 Accession Number: [id number] / [id number] Procedure: CT - Abdomen/Pelvis W/ CPT Code: FULL RESULT: EXAM: Abdomen/Pelvis W/ DATE: 12/02/2017 11:55 AM CLINICAL HISTORY: LLQ PAIN COMPARISON: 09/25/2017 TECHNIQUE: Routine helical CT imaging was performed through the abdomen and pelvis. IV contrast: 100 mL Isovue 300. Enteric contrast: Yes. Reconstructions: Coronal and sagittal. In accordance with CT protocol optimization, one or more of the following dose reduction techniques were utilized for this exam: automated exposure control, adjustment of mA and/or KV based on patient size, or use of iterative reconstructive technique. FINDINGS: Lung Bases: Basilar atelectasis. Liver: Fatty infiltration. Calcifications of old granulomatous disease. No focal suspicious mass. Gallbladder/Bile Ducts: Changes of cholecystectomy. No biliary dilatation. Spleen: Normal. Pancreas: Normal. Adrenal Glands: Normal. Kidneys: Cortical cysts. Calculus in the lower pole of the left kidney, measuring 7 mm. No hydronephrosis or solid renal mass. Peritoneal Cavity/Bowel: Previously seen colonic wall thickening and surrounding inflammation have resolved. Diverticulosis, without CT evidence of diverticulitis. No small bowel dilatation, free gas, or free fluid. No adenopathy. The appendix is well visualized and normal. Pelvic Organs: Normal. The bladder and visualized pelvic organs are within normal limits. Vasculature: No aneurysms or other significant abnormality. Bones: Degenerative changes. Other: None. IMPRESSION: No evident etiology for patient's left lower quadrant pain. Nonobstructing left renal calculus. Resolution of previously seen diverticulitis. [facility]
== END 2017-12-02 10:21 | disposition home or self-care (01) ==
LOC: LAB 10:20 → DI 10:21
PROVIDERS: ATTEND Surgery
DX: R10.32 Left lower quadrant pain (principal); N20.0 Calculus of kidney
CPT/HCPCS: 36415; 74177; 82565; Q9967

== ENCOUNTER 2018-01-29 10:57 | Emergency (ER) | payer OTHER, MEDICARE ==
[2018-01-29 11:14] VITALS: BP 163/77
--- NOTE | 2018-01-29 12:13 | ED Physician Documentation ---
PD HPI DYSPNEA - Stated complaint Stated Complaint: SOA/COUGH - Chief complaint Chief Complaint: Resp - History obtained from History obtained from: Patient - History of Present Illness Timing - onset: Other (This is a 72-year-old ex-smoker with history of COPD, chronic bronchitis and asthma who presents with 2 weeks of minimally productive cough worse at night and shortness of breath. She has been taking Advair, her rescue inhaler and albuterol via nebulizer without relief. She denies any fevers. 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 HEENT: Cataracts - Present Medications Home Medications: Ambulatory Orders Medication Instructions Recorded Confirmed Lisinopril 10 mg PO DAILY 10/31/12 05/19/17 Albuterol Sulfate 2.5 mg IH Q6H PRN #1 bot 02/14/16 05/19/17 Atorvastatin [Lipitor] 1 tab PO DAILY 02/14/16 05/19/17 Doxycycline Hyclate 100 mg PO BID #14 tablet 10/16/17 Montelukast Sodium 10 mg PO DAILY #30 tablet 10/16/17 amLODIPine [Norvasc] 10 10/16/17 guaiFENesin/CODEINE [Robitussin AC] 5 - 10 ml PO Q6H PRN #120 ml 10/16/17 predniSONE [Deltasone] 60 mg PO DAILY 5 Days tablet 10/16/17 Doxycycline Hyclate 100 mg PO BID #14 capsule 01/29/18 Hydrocodone/Chlorphen P-Stirex 5 - 10 ml PO Q4H PRN #120 ml 01/29/18 [Hydrocodone-Chlorphen ER Susp] Ipratropium/Albuterol [Duoneb] 3 ml INH BID #30 unit 01/29/18 predniSONE [Deltasone] 10 mg PO [id number] #42 tab 01/29/18 - Allergies Allergies/Adverse Reactions: Allergies Allergy/AdvReac Type Severity Reaction Status Date / Time cephalexin monohydrate * Allergy Severe Respiratory Verified 01/29/18 11:13 [From Keflex] Penicillins Allergy Severe Hives Verified 01/29/18 11:13 - Social History Does the pt smoke?: No Smoking Status: Never smoker Does the pt drink ETOH?: Yes Does the pt have substance abuse?: No - Immunizations Immunizations are current?: No Immunizations: TDAP >10years/unknown - POLST Patient has POLST: No PD ED PE NORMAL - Vitals Vital signs reviewed: Yes - General General: Alert and oriented X 3, No acute distress - HEENT HEENT: PERRL, Pharynx benign - Neck Neck: Supple, no meningeal sign, No bony TTP - Cardiac Cardiac: RRR, No murmur - Respiratory Respiratory: No respiratory distress, Other (Mild bibasilar rhonchi, and exp wheezes, nl air movement) - Abdomen Abdomen: Non tender - Extremities Extremities: No edema, No calf tenderness / cord - Neuro Neuro: Alert and oriented X 3, Normal speech Results - Vitals Vitals: Vital Signs - 24 hr 01/29/18 11:07 Temperature 36.7 C Heart Rate 82 Respiratory 20 Rate Blood Pressure 163/77 H O2 Saturation 98 Oxygen O2 Source Room air PD MEDICAL DECISION MAKING - Sepsis Event Vital Signs: Vital Signs - 24 hr 01/29/18 11:07 Temperature 36.7 C Heart Rate 82 Respiratory 20 Rate Blood Pressure 163/77 H O2 Saturation 98 Oxygen O2 Source Room air Departure - Departure Disposition: 01 Home, Self Care Clinical Impression: COPD with exacerbation Condition: Good Record reviewed to determine appropriate education?: Yes Instructions: ED COPD Flare Prescriptions: Doxycycline Hyclate 100 mg PO BID #14 capsule Hydrocodone/Chlorphen P-Stirex [Hydrocodone-Chlorphen ER Susp] 5 - 10 ml PO Q4H PRN #120 ml PRN Reason: Cough Ipratropium/Albuterol [Duoneb] 3 ml INH BID #30 unit predniSONE [Deltasone] 10 mg PO [id number] #42 tab Comments: Call your doctor to arrange a follow-up appointment, make the next available appointment. In the interim, return anytime if worse or if new symptoms develop. Your blood pressure was elevated today on check into the emergency department. This does not mean that you have hypertension, it is a common phenomenon to come to the emergency department and have elevated blood pressure. I recommend that you see your primary care physician within the week to have it rechecked when you are feeling better.
== END 2018-01-29 12:54 | disposition home or self-care (01) ==
LOC: ED 10:57
DX: J44.1 Chronic obstructive pulmonary disease with (acute) exacerbation (principal); I10 Essential (primary) hypertension; E78.00 Pure hypercholesterolemia, unspecified
CPT/HCPCS: 99283

== ENCOUNTER 2018-03-21 12:54 | Emergency (ER) | payer OTHER, MEDICARE ==
--- NOTE | 2018-03-21 13:14 | ED Physician Documentation ---
PD HPI URI - Stated complaint Stated Complaint: SORE THROAT - Chief complaint Chief Complaint: Heent - History obtained from History obtained from: Patient - History of Present Illness Timing - onset: Other (5 days of nonproductive cough and now 2 days of sore throat and loss of voice. No fevers. She was exposed to strep throat. Some shortness of breath with exertion.) Review of Systems Ten Systems: 10 systems reviewed and negative Constitutional: denies: Fever, Chills Nose: reports: Rhinorrhea / runny nose. 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 HEENT: Cataracts - Present Medications Home Medications: Ambulatory Orders Medication Instructions Recorded Confirmed Lisinopril 10 mg PO DAILY 10/31/12 03/21/18 Albuterol Sulfate 2.5 mg IH Q6H PRN #1 bot 02/14/16 03/21/18 Atorvastatin [Lipitor] 1 tab PO DAILY 02/14/16 03/21/18 Montelukast Sodium 10 mg PO DAILY #30 tablet 10/16/17 03/21/18 amLODIPine [Norvasc] 10 mg PO DAILY 10/16/17 Ipratropium/Albuterol [Duoneb] 3 ml INH BID #30 unit 01/29/18 03/21/18 Hydrocodone Bit/Homatrop Me-Br 5 - 10 ml PO Q4HR PRN #120 ml 03/21/18 [Hydrocodone-Homatropine Syrup] predniSONE [Prednisone] 60 mg PO DAILY 5 Days #15 tablet 03/21/18 - Allergies Allergies/Adverse Reactions: Allergies Allergy/AdvReac Type Severity Reaction Status Date / Time cephalexin monohydrate * Allergy Severe Respiratory Verified 03/21/18 13:01 [From Keflex] Penicillins Allergy Severe Hives Verified 03/21/18 13:01 - Social History Does the pt smoke?: No Smoking Status: Former smoker Does the pt drink ETOH?: No Does the pt have substance abuse?: No - Immunizations Immunizations are current?: No Immunizations: TDAP >10years/unknown - POLST Patient has POLST: No PD ED PE NORMAL - Vitals Vital signs reviewed: Yes - General General: Alert and oriented X 3, No acute distress - HEENT HEENT: PERRL, EOMI, Ears normal, Pharynx benign (Status post remote tonsillectomy) - Neck Neck: Supple, no meningeal sign, No adenopathy - Cardiac Cardiac: RRR, No murmur - Respiratory Respiratory: No respiratory distress, Clear bilaterally - Abdomen Abdomen: Non tender - Neuro Neuro: Alert and oriented X 3, Normal speech Results - Vitals Vitals: Vital Signs - 24 hr 03/21/18 12:57 Temperature 36.4 C L Heart Rate 80 Respiratory 16 Rate Blood Pressure 140/65 H O2 Saturation 98 Oxygen O2 Source Room air - Labs Labs: Laboratory Tests 03/21/18 13:15 Group A Strep Rapid Negative - Rads (name of study) 2v chest Radiology: EMP read contemporaneously (Atelectatic and viral changes in the right base without consolidative pneumonia) Departure - Departure Disposition: 01 Home, Self Care Clinical Impression: Viral URI with cough Condition: Good Record reviewed to determine appropriate education?: Yes Instructions: ED Viral Syndrome Prescriptions: Hydrocodone Bit/Homatrop Me-Br [Hydrocodone-Homatropine Syrup] 5 - 10 ml PO Q4HR PRN #120 ml PRN Reason: Cough predniSONE [Prednisone] 60 mg PO DAILY 5 Days #15 tablet Comments: Call your doctor to arrange a follow-up appointment, make the next available appointment. In the interim, return anytime if worse or if new symptoms develop.
--- NOTE | 2018-03-21 14:04 | XRAY Report ---
Reason: cough Procedure Date: 03/21/2018 Accession Number: [id number] / [id number] Procedure: XR - Chest 2 View X-Ray CPT Code: 15216 FULL RESULT: EXAM: CHEST RADIOGRAPHY EXAM DATE: 03/21/2018 01:34 PM. CLINICAL HISTORY: Cough. COMPARISON: Chest radiograph dated 09/18/2017. TECHNIQUE: 2 views. FINDINGS: Lungs/Pleura: Atelectatic changes in the right lung base with no new focal consolidation or pleural effusion. Mild increased interstitial markings with peribronchial cuffing in the right lung base are redemonstrated. Mediastinum: Heart and mediastinal contours are unremarkable. Other: None. IMPRESSION: 1. Atelectatic changes in the right lung base with no new focal consolidation or pleural effusion. 2. Mild increased interstitial markings with peribronchial cuffing in the right lung base are redemonstrated and can be seen in the setting of reactive airways disease, bronchitis and viral infection. [facility]
[2018-03-21 14:40] VITALS: BP 147/87
== END 2018-03-21 14:40 | disposition home or self-care (01) ==
LOC: ED 12:54
DX: J06.9 Acute upper respiratory infection, unspecified (principal); B97.89 Other viral agents as the cause of diseases classified elsewhere; B95.0 Streptococcus, group A, as the cause of diseases classified elsewhere; I10 Essential (primary) hypertension; E78.00 Pure hypercholesterolemia, unspecified; Z87.891 Personal history of nicotine dependence
CPT/HCPCS: 71046; 87070; 87077; 87430; 99283